=== PATIENT | female | born 1995 | race African-American/Black ===

== ENCOUNTER 2022-07-16 00:20 | Inpatient (IN) | payer BC ==
[2022-07-16] MEDS ORDERED: Ondansetron 4 MG/2 ML SDV IVPUSH PRN ×2 (00:37→16:54)
[2022-07-16] MEDS ORDERED: Tranexamic Acid 1,000 MG in Sodium Chloride 0.9% 100 ML IV PRN (00:37)
[2022-07-16] MEDS ORDERED: Lidocaine 1% 50 ML MDV INJECT PRN (00:37)
[2022-07-16] MEDS ORDERED: Butorphanol 1 MG/ML SDV IVPUSH PRN (00:37)
[2022-07-16] MEDS ORDERED: Misoprostol 25 MCG (1/4 of 100 MCG) Tab VAG PRN ×2 (00:37)
[2022-07-16] MEDS ORDERED: Carboprost Tromethamine 250 MCG/1 ML Amp IM PRN (00:37)
[2022-07-16] MEDS ORDERED: Misoprostol 200 MCG Tab PO PRN (00:37)
[2022-07-16] MEDS ORDERED: Water For Irrigation,Sterile 1,000 ML Container IRR PRN (00:37)
[2022-07-16] MEDS ORDERED: Terbutaline 1 MG/ML SDV SUBCUT PRN (00:37)
[2022-07-16] MEDS ORDERED: Sodium Chloride 0.9% 20 ML SDV IV PRN (00:37)
[2022-07-16] MEDS ORDERED: Methylergonovine 0.2 MG/1 ML Amp IM PRN (00:37)
[2022-07-16] MEDS ORDERED: Sodium Chloride 0.9% 10 ML Syringe FLUSH PRN (00:37)
[2022-07-16] MEDS ORDERED: Sodium Chloride 0.9% 2.5 ML Syringe FLUSH PRN (00:37)
[2022-07-16] MEDS ORDERED: Oxytocin/0.9 % Sodium Chloride 30 UNIT/500 ML BAG IV SCH ×2 (00:45)
[2022-07-16] MEDS: Misoprostol 25 MCG (1/4 of 100 MCG) Tab PO SCH ×2 (02:32→07:25)
[2022-07-16] MEDS ORDERED: ePHEDrine 50 MG/ML SDV IVPUSH PRN ×2 (07:41)
[2022-07-16] MEDS ORDERED: Phenylephrine HCl In 0.9% NaCl 1 MG/10 ML Vial IVPUSH PRN (07:41)
[2022-07-16] MEDS ORDERED: Phenylephrine HCl In 0.9% NaCl 1 MG/10 ML Vial IVPUSH SCH (07:45)
[2022-07-16] MEDS ORDERED: Ropivacaine HCl/PF 400 MG in Premix Bag 1 BAG EPIDUR SCH (07:45)
[2022-07-16] MEDS: Lactated Ringers 1,000 ML IV SCH ×2 (11:50→13:45)
[2022-07-16] MEDS ORDERED: ceFAZolin 2 GM in Premix Bag 1 BAG IV ONE ×2 (15:35→22:00)
[2022-07-16] MEDS ORDERED: Oxytocin 10 Units/1 ML SDV ONE (16:15)
[2022-07-16] MEDS ORDERED: ceFAZolin 1 GM Vial ONE (16:19)
[2022-07-16] MEDS ORDERED: Midazolam 1 MG/ML 2 ML SDV ONE (16:25)
[2022-07-16] MEDS ORDERED: Ondansetron 4 MG/2 ML SDV ONE (16:26)
[2022-07-16] MEDS ORDERED: Dexamethasone 4 MG/ML 5 ML MDV ONE (16:27)
[2022-07-16 16:49] LABS: CARBON DIOXIDE,CO2 20.4 mmol/L (21.0-32.0); POTASSIUM,K 4.3 mmol/L (3.5-5.1)
[2022-07-16] MEDS ORDERED: Naloxone 0.4 MG/ML SDV IVPUSH PRN (16:54)
[2022-07-16] MEDS ORDERED: Metoclopramide 10 MG/2 ML SDV IVPUSH PRN (16:54)
[2022-07-16] MEDS ORDERED: HYDROmorphone 2 MG/ML Syringe IVPUSH PRN (16:54)
[2022-07-16] MEDS ORDERED: Morphine 2 MG/ML SYRINGE IVPUSH PRN (16:54)
[2022-07-16] MEDS ORDERED: fentaNYL 100 MCG/2 ML SDV IVPUSH PRN (16:54)
[2022-07-16] MEDS ORDERED: Albuterol 0.083% 2.5 MG/3 ML Neb Soln NEB PRN (16:54)
[2022-07-16] MEDS ORDERED: Benzocaine/Menthol 20%-0.5% Spray 78 GM Cannister TOP PRN (16:56)
[2022-07-16] MEDS ORDERED: Ibuprofen 800 MG Tab PO PRN (16:56)
[2022-07-16] MEDS ORDERED: Ibuprofen 400 MG Tab PO PRN (16:56)
[2022-07-16] MEDS ORDERED: Docusate Sodium 100 MG Cap PO PRN (16:56)
[2022-07-16] MEDS ORDERED: oxyCODONE 5 MG Tab PO PRN (16:56)
[2022-07-16] MEDS ORDERED: Witch Hazel Medicated Pads 40/Jar TOP PRN (16:56)
[2022-07-16] MEDS ORDERED: Lanolin 100% Cream 7 GM Tube TOP PRN (16:56)
[2022-07-16] MEDS ORDERED: Acetaminophen 500 MG Tab PO PRN ×2 (16:56)
[2022-07-16] MEDS ORDERED: Bisacodyl 10 MG Supp RECTAL PRN (16:56)
[2022-07-16] MEDS ORDERED: Tranexamic Acid 1,000 MG/10 ML Vial ONE (17:04)
[2022-07-16] MEDS ORDERED: Ampicillin/Sulbactam Na 3 GM in Sodium Chloride 0.9% 100 ML IV SCH (17:30)
[2022-07-16] MEDS ORDERED: diphenhydrAMINE 50 MG/ML SDV ONE (18:02)
[2022-07-16] MEDS ORDERED: ceFAZolin 2 GM in Premix Bag 1 BAG IV SCH (19:00)
[2022-07-16] MEDS: metroNIDAZOLE/Normal Saline 500 MG in Premix Bag 1 BAG IV SCH (19:15)
[2022-07-16] MEDS ORDERED: diphenhydrAMINE 50 MG/ML SDV IVPUSH ONE (20:38)
[2022-07-16] MEDS: ceFAZolin 2 GM in Premix Bag 1 BAG IV SCH (22:29)
[2022-07-17] MEDS: metroNIDAZOLE/Normal Saline 500 MG in Premix Bag 1 BAG IV SCH ×2 (02:54→10:15)
[2022-07-17] MEDS: ceFAZolin 2 GM in Premix Bag 1 BAG IV SCH (04:21)
[2022-07-17] MEDS ORDERED: ceFAZolin 2 GM in Premix Bag 1 BAG IV SCH (10:30)
[2022-07-17] MEDS: ceFAZolin 2 GM in Sodium Chloride 0.9% 50 ML IV SCH ×2 (11:19→16:48)
== END 2022-07-18 18:50 | disposition home or self-care (01) | DRG 541 ==
LOC: MW.OBCHECK 00:20 → MW.OB 00:21 → MW.OBCHECK 00:37 → OBSVTOIN 16:58 → MW.OB 21:00
PROVIDERS: ADMIT Obstetrics & Gynecology Obstetrics; ATTEND Obstetrics & Gynecology Obstetrics
PROC: 10E0XZZ Delivery of Products of Conception, External Approach (ICD-10-PCS; principal; 2022-07-16)
PROC: 0UQGXZZ Repair Vagina, External Approach (ICD-10-PCS; 2022-07-16)
PROC: 3E0R3BZ Introduction of Anesthetic Agent into Spinal Canal, Percutaneous Approach (ICD-10-PCS; 2022-07-16)
PROC: 00HU33Z Insertion of Infusion Device into Spinal Canal, Percutaneous Approach (ICD-10-PCS; 2022-07-16)
PROC: 10D17ZZ Extraction of Products of Conception, Retained, Via Natural or Artificial Opening (ICD-10-PCS; 2022-07-16)
DX: O48.0 Post-term pregnancy (principal); O36.5930 Maternal care for other known or suspected poor fetal growth, third trimester, not applicable or unspecified; O99.02 Anemia complicating childbirth; D64.9 Anemia, unspecified; Z20.822 Contact with and (suspected) exposure to COVID-19; O76 Abnormality in fetal heart rate and rhythm complicating labor and delivery; O69.81X0 Labor and delivery complicated by cord around neck, without compression, not applicable or unspecified; O72.1 Other immediate postpartum hemorrhage; O70.0 First degree perineal laceration during delivery; Z3A.40 40 weeks gestation of pregnancy; Z37.0 Single live birth
CPT/HCPCS: 36415; 36430; 51702; 59025; 59409; 80053; 85014; 85018; 85025; 85027; 85384; 85610; 86592; 86850; 86900; 86901; 86920; A9270-GY; J0690; J1100; J1200; J1790; J2210; J2250; J2405; J2590; J3490; J7120; P9016; U0002

== ENCOUNTER 2024-03-05 16:32 | Inpatient (IN) | payer BC ==
[~2024-03-05 16:32] MED LIST: Misoprostol 200 MCG Tab PO ONE
[2024-03-05] MEDS ORDERED: Carboprost Tromethamine 250 MCG/1 mL Vial IM PRN (17:12)
[2024-03-05] MEDS ORDERED: Tranexamic Acid IN NACL,ISO-OS 1,000 MG in Premix Bag 1 BAG IV PRN (17:12)
[2024-03-05] MEDS ORDERED: Misoprostol 200 MCG Tab PO PRN (17:12)
[2024-03-05] MEDS ORDERED: Sodium Chloride 0.9% 10 ML Syringe FLUSH PRN ×2 (17:12→17:57)
[2024-03-05] MEDS ORDERED: Lidocaine 1% 50 ML MDV INJECT PRN (17:12)
[2024-03-05] MEDS ORDERED: Water For Irrigation,Sterile 1,000 ML Container IRR PRN (17:12)
[2024-03-05] MEDS ORDERED: Methylergonovine 0.2 MG/1 ML Amp IM PRN (17:12)
[2024-03-05] MEDS ORDERED: Butorphanol 2 MG/ML SDV IVPUSH PRN (17:12)
[2024-03-05] MEDS ORDERED: Sodium Chloride 0.9% 2.5 ML Syringe FLUSH PRN ×2 (17:12→17:57)
[2024-03-05] MEDS ORDERED: Sodium Chloride 0.9% 20 ML SDV IV PRN (17:12)
[2024-03-05] MEDS ORDERED: Oxytocin/0.9 % Sodium Chloride 30 UNIT/500 ML BAG IV SCH (17:15)
[2024-03-05] MEDS ORDERED: Benzocaine/Menthol 20%-0.5% Spray 78 GM Cannister TOP PRN (17:57)
[2024-03-05] MEDS ORDERED: diphenhydrAMINE 50 MG Cap PO PRN (17:57)
[2024-03-05] MEDS ORDERED: Docusate Sodium 100 MG Cap PO PRN (17:57)
[2024-03-05] MEDS ORDERED: Acetaminophen 500 MG Tab PO PRN (17:57)
[2024-03-05] MEDS ORDERED: Lanolin 100% Cream 7 GM Tube TOP PRN ×2 (17:57)
[2024-03-05] MEDS ORDERED: Naloxone 0.4 MG/ML SDV IVPUSH ONE (17:57)
[2024-03-05] MEDS ORDERED: Terbutaline 1 MG/ML SDV SUBCUT PRN (18:08)
[2024-03-05] MEDS: Lactated Ringers 1,000 ML IV SCH (18:14)
[2024-03-05 18:23] LABS: BASOPHILS ABSOLUTE AUTO 0.02 K/uL (0.00-0.20); BASOPHILS PERCENT AUTO 0.2 % (0.0-1.0); EOSINOPHILS PERCENT AUTO 0.9 % (0.0-6.0); HEMOGLOBIN 12.1 g/dL (12.0-16.0); IMMATURE GRAN ABSOLUTE AUTO 0.06 K/uL (0.00-0.05); IMMATURE GRAN PERCENT AUTO 0.6 % (0.0-0.4); LYMPHOCYTES ABSOLUTE AUTO 2.03 K/uL (1.00-4.80); LYMPHOCYTES PERCENT AUTO 19.2 % (24.0-44.0); MEAN CORPUSCULAR HEMOGLOBIN 28.1 pg (28.0-32.0); MEAN CORPUSCULAR HGB CONC 33.6 g/dL (32.0-36.0); MEAN CORPUSCULAR VOLUME 83.7 fL (83.0-99.0); MEAN PLATELET VOLUME 11.1 fL (9.4-12.3); MONOCYTES ABSOLUTE AUTO 0.93 K/uL (0.00-0.80); MONOCYTES PERCENT AUTO 8.8 % (0.0-8.0); NEUTROPHILS ABSOLUTE AUTO 7.45 K/uL (1.80-7.70); NEUTROPHILS PERCENT AUTO 70.3 % (41.0-71.0); PLATELET COUNT,PLT 236 K/uL (150-400); WHITE BLOOD CELL COUNT,WBC 10.59 K/uL (3.9-11.3)
[2024-03-05] MEDS: Oxytocin/0.9 % Sodium Chloride 30 UNIT/500 ML BAG IV SCH (19:31)
[2024-03-05] MEDS ORDERED: Bupivacaine 0.5% 10 ML SDV ONE (21:28)
[2024-03-05] MEDS ORDERED: Ropivacaine HCl/PF 200 ML ONE (21:28)
[2024-03-05] MEDS ORDERED: Phenylephrine HCl In 0.9% NaCl 1 MG/10 ML Syringe ONE (21:28)
[2024-03-05] MEDS: Ropivacaine HCl/PF 400 MG in Premix Bag 1 BAG EPIDUR SCH (21:43)
[2024-03-05] MEDS ORDERED: ePHEDrine 50 MG/ML SDV IVPUSH PRN ×2 (21:49)
[2024-03-05] MEDS: Phenylephrine HCl In 0.9% NaCl 1 MG/10 ML Syringe IVPUSH PRN (22:38)
[2024-03-05] MEDS: Ondansetron 4 MG/2 ML SDV IVPUSH PRN (23:41)
[2024-03-06] MEDS: Misoprostol 200 MCG Tab RECTAL ONE (00:57)
[2024-03-06 01:25] LABS: PH,UMBILICAL ARTERIAL 7.179 (7.18-7.38); PH,UMBILICAL VENOUS 7.288 (7.25-7.45)
[2024-03-06] MEDS: Ibuprofen 800 MG Tab PO PRN (06:12)
[2024-03-06 07:19] LABS: HEMATOCRIT 32.7 % (37.0-47.0); MEAN CORPUSCULAR HEMOGLOBIN 28.1 pg (28.0-32.0); MEAN CORPUSCULAR HGB CONC 33.6 g/dL (32.0-36.0); MEAN CORPUSCULAR VOLUME 83.6 fL (83.0-99.0); PLATELET COUNT,PLT 218 K/uL (150-400); RED BLOOD CELL COUNT 3.91 M/uL (4.10-5.30)
[2024-03-06] MEDS: Benzocaine/Menthol 20%-0.5% Spray 78 GM Cannister TOP PRN (12:30)
[2024-03-06] MEDS: Witch Hazel Medicated Pads 40/Jar TOP PRN (12:30)
== END 2024-03-07 11:56 | disposition still patient (30) | DRG 560 ==
LOC: MW.OBCHECK 16:32 → MW.OB 16:34 → MW.OBCHECK 17:12 → OBSVTOIN 03-06 00:44 → MW.OB 03-06 12:50
PROVIDERS: ADMIT Obstetrics & Gynecology; ATTEND Obstetrics & Gynecology
PROC: 10E0XZZ Delivery of Products of Conception, External Approach (ICD-10-PCS; principal; 2024-03-06)
PROC: 3E0R3BZ Introduction of Anesthetic Agent into Spinal Canal, Percutaneous Approach (ICD-10-PCS; 2024-03-06)
PROC: 00HU33Z Insertion of Infusion Device into Spinal Canal, Percutaneous Approach (ICD-10-PCS; 2024-03-06)
DX: O42.02 Full-term premature rupture of membranes, onset of labor within 24 hours of rupture (principal); O99.354 Diseases of the nervous system complicating childbirth; G43.909 Migraine, unspecified, not intractable, without status migrainosus; Z37.0 Single live birth; Z3A.39 39 weeks gestation of pregnancy; O69.81X0 Labor and delivery complicated by cord around neck, without compression, not applicable or unspecified; O90.81 Anemia of the puerperium; D62 Acute posthemorrhagic anemia
CPT/HCPCS: 36415; 51702; 59025; 59409; 82803; 84112; 85025; 85027; 86592; 86850; 86900; 86901; A9270-GY; J0665; J2371; J2405; J2590; J2795; J7120